=== PATIENT | male | born 1990 | race Two or more races ===

== ENCOUNTER 2024-09-12 10:41 | Emergency (ER) | payer OTHER ==
[~2024-09-12] VITALS: Ht 172.7 cm; Wt 94.4 kg
[2024-09-12 12:01] VITALS: BP 120/72; PULSE 74; RESP 14; TEMP 98.2; O2SAT 97
[2024-09-12] MEDS ORDERED: IBU600T PO (12:27)
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
[2024-09-12] MEDS: KETOROLAC TROMETH 60MG/2ML VIAL IM ONE (12:39)
--- NOTE | 2024-09-12 12:49 | DVH ---
CLINICAL INDICATION: fall TECHNIQUE: AP and lateral views of the left foot were performed. XY L FOOT 2 VIEW XRAY Comparison: None FINDINGS/IMPRESSION: : No acute fracture or dislocation of the left foot.
== END 2024-09-12 13:24 | disposition home or self-care (01) ==
LOC: ER 10:52
DX: S96.912A Strain of unspecified muscle and tendon at ankle and foot level, left foot, initial encounter (principal); X50.1XXA Overexertion from prolonged static or awkward postures, initial encounter; Y93.89 Activity, other specified; Y92.89 Other specified places as the place of occurrence of the external cause; Y99.8 Other external cause status
CPT/HCPCS: 73620; 96372; 99283; J1885